=== PATIENT | male | born 1935 | race Hispanic/Latino ===

== ENCOUNTER 2019-09-11 23:34 | Inpatient (IN) | payer MEDICARE, OTHER ==
[~2019-09-11] VITALS: Ht 170.2 cm; Wt 61.7 kg
[2019-09-12] VITALS (12 sets, daily range): BP systolic 104–117; BP diastolic 54–72
[2019-09-12] MEDS ORDERED: SODIUM CHLORIDE 0.9% 1000ML 1,000 ML IV ONE ×2 (00:15)
[2019-09-12] MEDS ORDERED: CEFTRIAXONE SOD 1 GM/NS 50 ML 50 ML IV ONE (00:15)
--- NOTE | 2019-09-12 00:26 | Emergency Department Note ---
History of Present Illnes History of Present Illness Chief Complaint: Genitourinary History of Present Illness This is a 84 year old male FOR ONE WEEK HAS BEEN HAVING FOUL URINE ODOR COMING FROM BRIEF, FAMILY HAD A VIRTUAL CONSULT WITH DR WELCH IN WHICH THEY DID A URINE SAMPLE WITH [facility], DR SIMENTAL OFFICE CALLED TODAY AND PLACED PATIENT ON BACTRIM-POSITIVE FOR E.COLI IN URINE, FAMILY COMES IN TODAY FOR CONCERNS THAT PATIENT HAS BEEN HAVING NEW BLADDER DISTENTION SINCE 3PM TODAY. PATIENT HAS NOT URINATED SINCE 3PM TODAY PER FAMILY . Historian: Family Member Arrival Mode: Car Onset (how long ago): day(s) (7) Location: SUPRAPUBIC Quality: FOUL SMELLING URINE AND NOW NO URINE OUTPUT FOR PAST 9 HOURS Severity: moderate Onset quality: gradual Duration (how long): day(s) (7) Progression: worsening Chronicity: new Context: Reports recent illness (UTI) Relieving factors: none Exacerbating factors: none Associated symptoms: Reports confusion, Reports malaise, Reports weakness Treatments prior to arrival: none Past Medical/Family History Physician Review I have reviewed the patient's past medical and family history. Any updates have been documented here. Past Medical History Recent Fever: Yes Clinical Suspicion of Infectio: Yes New/Unexplained Change in Ment: Yes Other Medical History: PROSTATE UTI PARKINSONS Other Surgery: CATARACT REMOVAL Social History Smoking Cessation: Never Smoker Alcohol Use: None Physically hurt or threatened: No Family History Family history of heart diseas: No Review of Systems Review of Systems Constitutional: Reports as per HPI EENTM: Reports no symptoms Cardiovascular: Reports no symptoms Respiratory: Reports no symptoms Gastrointestinal: Reports no symptoms Genitourinary: Reports as per HPI Musculoskeletal: Reports no symptoms Integumentary: Reports no symptoms Neurological: Reports as per HPI Psychological: Reports no symptoms Endocrine: Reports no symptoms Hematological/Lymphatic: Reports no symptoms Physical Exam Related Data Allergies: Uncoded Allergies: PENICILLIN (Allergy, Intermediate, RASH, 09/11/19) Triage Vital Signs Vital Signs Date Time Temp Pulse Resp B/P (MAP) Pulse Ox O2 Delivery O2 Flow Rate FiO2 09/11/19 23:47 98.5 117 20 88/51 97 Room Air Vital signs reviewed: Yes Physical Exam CONSTITUTIONAL Constitutional: Present well-developed, Present well-nourished, Present ill appearing HENT HENT: Present normocephalic, Present atraumatic, Present mucosae dry, Present nose normal HENT L/R: Present left ext ear normal, Present right ext ear normal EYES Eyes: Reports PERRL, Reports conjunctivae normal NECK Neck: Present ROM normal PULMONARY Pulmonary: Present effort normal, Present other (DECREASED BREATH SOUNDS BASE BILATERAL) CARDIOVASCULAR Cardiovascular: Present regular rhythm, Present heart sounds normal, Present capillary refill normal, Present tachycardia (117) GASTROINTESTINAL Abdominal: Present soft, Present bowel sounds normal, Present tender (SUPRAPUBIC, BLADDER FEELS DISTENDED ON EXAM) GENITOURINARY Genitourinary: Present exam deferred SKIN Skin: Present warm, Present dry MUSCULOSKELETAL Musculoskeletal: Present ROM normal NEUROLOGICAL Neurological: Present alert, Present no gross motor or sensory deficits, Present weakness (GENERALIZED), Present other (ORIENTED TO PERSON ONLY AT THIS TIME) PSYCHOLOGICAL Psychological: Present mood/affect normal Results Laboratory Laboratory Laboratory Tests Test 09/12/19 02:13 09/12/19 00:35 09/12/19 00:15 Lactic Acid Level 2.8 mmol/L (0.5-2.0) 3.7 mmol/L (0.5-2.0) Urine Color Other (YELLOW) Urine Clarity Turbid (CLEAR) Urine pH 5.5 (5 - 7) Urine Specific [place] 1.015 (1.010-1.025) Urine Protein 2+ (NEGATIVE) Urine Glucose (UA) Negative (NEGATIVE) Urine Ketones Negative (NEGATIVE) Urine Blood Moderate (NEGATIVE) Urine Nitrite Positive (NEGATIVE) Urine Bilirubin Negative (NEGATIVE) Urine Urobilinogen 0.2 mg/dL (0.2 - 1) Urine Leukocyte Esterase Large (NEGATIVE) Urine RBC 6-10 /HPF (0-5) Urine WBC >50 /HPF (0-5) Urine Epithelial Cells Rare /LPF (NONE) Urine Bacteria Many /HPF (NONE) White Blood Count 35.88 x10e3/uL (4.8-10.8) Red Blood Count 4.66 x10e6/uL (4.3-5.7) Hemoglobin 13.2 g/dL (14.0-18.0) Hematocrit 38.9 % (38.2-49.6) Mean Corpuscular Volume 83.5 fL (81-99) Mean Corpuscular Hemoglobin 28.3 pg (28-32) Mean Corpuscular Hemoglobin Concent 33.9 g/dL (31-35) Red Cell Distribution Width 14.6 % (11.7-14.4) Platelet Count 187 x10e3/uL (140-360) Neutrophils (%) (Auto) 93.2 % (38.7-80.0) Lymphocytes (%) (Auto) 1.7 % (18.0-39.1) Monocytes (%) (Auto) 0.6 % (4.4-11.3) Eosinophils (%) (Auto) 0.1 % (0.0-6.0) Basophils (%) (Auto) 0.5 % (0.0-1.0) Neutrophils # (Auto) 33.4 (2.1-6.9) Lymphocytes # (Auto) 0.6 (1.0-3.2) Monocytes # (Auto) 0.2 (0.2-0.8) Eosinophils # (Auto) 0.0 (0.0-0.4) Basophils # (Auto) 0.2 (0.0-0.1) Absolute Immature Granulocyte (auto 1.41 x10e3/uL (0-0.1) Differential Total Cells Counted 100 Neutrophils % (Manual) 93 % (40-74) Band Neutrophils % 3 % Lymphocytes % (Manual) 3 % (19-48) Monocytes % (Manual) 1 % (3.4-9.0) Platelet Estimate Adequate Platelet Morphology Comment Normal Anisocytosis Slight Red Cell Morphology Comment Normal Prothrombin Time 14.8 seconds (11.9-14.5) Prothromb Time International Ratio 1.10 Activated Partial Thromboplast Time 33.4 seconds (23.8-35.5) Sodium Level 132 mmol/L (136-145) Potassium Level 4.1 mmol/L (3.5-5.1) Chloride Level 102 mmol/L (98-107) Carbon Dioxide Level 18 mmol/L (22-29) Anion Gap 16.1 mmol/L (8-16) Blood Urea Nitrogen 37 mg/dL (7-26) Creatinine 2.39 mg/dL (0.72-1.25) Estimat Glomerular Filtration Rate 26 ML/MIN (60-) BUN/Creatinine Ratio 15 (6-25) Glucose Level 127 mg/dL (74-118) Calcium Level 8.8 mg/dL (8.4-10.2) Total Bilirubin 0.2 mg/dL (0.2-1.2) Aspartate Amino Transf (AST/SGOT) 58 IU/L (5-34) Alanine Aminotransferase (ALT/SGPT) 43 IU/L (0-55) Alkaline Phosphatase 166 IU/L (40-150) Creatine Kinase 159 IU/L (30-200) Creatine Kinase MB 2.20 ng/mL (0-5.0) Troponin I 0.293 ng/mL (0-0.300) Total Protein 6.2 g/dL (6.5-8.1) Albumin 2.3 g/dL (3.5-5.0) Globulin 3.9 g/dL (2.3-3.5) Albumin/Globulin Ratio 0.6 (0.8-2.0) Lab results reviewed: Yes Imaging Imaging results reviewed: Yes Impressions Procedure: [id number] DX/CHEST SINGLE (PORTABLE) Exam Date: 09/12/19 Exam Time: 001 REPORT STATUS: Signed EXAMINATION: CHEST SINGLE (PORTABLE) INDICATION: WEAKNESS COMPARISON: None FINDINGS: TUBES and LINES: None. LUNGS: Lungs are well inflated. Patchy bibasilar opacities. No evidence of lobar consolidation or pulmonary edema. Mild biapical pleural-parenchymal scarring. Small bilateral upper lung likely calcified granulomas. Linear opacity in the right upper lung may represent atelectasis or scarring. PLEURA: Trace bilateral pleural effusions. No pneumothorax. HEART AND MEDIASTINUM: The cardiomediastinal silhouette is unremarkable. BONES AND SOFT TISSUES: No acute osseous lesion. Soft tissues are unremarkable. UPPER ABDOMEN: No free air under the diaphragm. IMPRESSION: Trace bilateral pleural effusions with bibasilar opacities, which may represent atelectasis or infection in the appropriate clinical setting. Suggest follow-up chest radiograph in 6-8 weeks to assess for resolution. Signed by: Dr. Ivy Clayton MD on 09/12/2019 12:35 AM Dictated By: IVY CLAYTON MD Transcribed By: OMA on 09/12/1934 COPY TO: FALGUNI DIOP MD~ Critical Care Time Total Critical Care Time (min): 31 Critcal care necessary due to: circulatory failure Critcal care time spent by me: develop tx plan w patient/surrogate, discussion w consultants, interpret cardiac output measures, evaluation patient response to tx, examination of patient, obtaining hx from patient/surrogate, order/perform tx or interventions, order/review laboratory studies, order/review radiographic studies, pulse oximetry, re-evaluation of patient condition Assessment & Plan Medical Decision Making MDM PT WITH 7 DAYS OF CONFUSION AND DIAGNOSED WITH UTI NOW WITH NO URINE OUTPUT IN LAST 9 HOURS, NOTED TO BE TACHYCARDIC AND HYPOTENSIVE ON ARRIVAL CBC, CMP, LACTIC ACID, BLOOD CULTURES, ROSAS CATHETER,CXR, UA, URINE CULTURE, EKG, CARDIAC ENZYMES ORDERED TO EVAL FOR UTI, LEUKOCYTOSIS, URINARY RETENTION, ELECTROLYTE ABNORMALITY, PNEUMONIA SEPSIS PROTOCOL INITIATED ROCEPHIN 1 GRAM IV ORDERED 30CC/KG NS IV BOLUS ORDERED, PT WEIGHT 61.8 KG, FLUID BOLUS COMES TO 1854CC NS, A TOTAL OF 2 LITERS NS IV BOLUS ORDERED TO ACCOUNT FOR THIS ROSAS CATH PLACED AND RETURNED 1000 CC OF CLOUDY URINE. INITIAL LACTIC ACID 3.[address] FIERRO AND DR MAYA, ADMIT TO IMCU Reassessment Reassessment time: 01:02 Reassessment I DID A BEDSIDE FLUID RESUSCITATION EXAM, VITAL, HEART 106, BP 199/68, RR 23, OXYGEN SATURATION 99% ON ROOM AIR Assessment & Plan Final Impression: (1) UTI (urinary tract infection) (2) Septic shock (3) Urinary retention (4) Leukocytosis Depart Disposition: ADMITTED Last Vital Signs Date Time Temp Pulse Resp B/P (MAP) Pulse Ox O2 Delivery O2 Flow Rate FiO2 09/11/19 23:47 98.5 117 20 88/51 97 Room Air Medications in the ED Ceftriaxone Sodium 50 ml @ 100 mls/hr ONCE ONCE IV ; Start 09/12/19 at 00:15; Stop 09/12/19 at 00:44 Sodium Chloride 1,000 ml @ 999 mls/hr Q1H1M ONCE IV ; Start 09/12/19 at 00:15; Stop 09/12/19 at 01:15 Sodium Chloride 1,000 ml @ 999 mls/hr Q1H1M ONCE IV ; Start 09/12/19 at 00:15; Stop 09/12/19 at 01:15 FALGUNI DIOP MD Sep 12, 2019 00:26
--- NOTE | 2019-09-12 00:30 | NUR ---
1000CC OF URINE UPON INSERTION OF ROSAS CATH. PATIENTS SUPRAPUBIC REGION IS DECREASED IN SIZE. PATIENTS ABDOMEN IS BECOMING SOFTER. DR DIOP INFORMED.
--- NOTE | 2019-09-12 00:39 | Diagnostic Imaging Report ---
EXAMINATION: CHEST SINGLE (PORTABLE) INDICATION: WEAKNESS COMPARISON: None FINDINGS: TUBES and LINES: None. LUNGS: Lungs are well inflated. Patchy bibasilar opacities. No evidence of lobar consolidation or pulmonary edema. Mild biapical pleural-parenchymal scarring. Small bilateral upper lung likely calcified granulomas. Linear opacity in the right upper lung may represent atelectasis or scarring. PLEURA: Trace bilateral pleural effusions. No pneumothorax. HEART AND MEDIASTINUM: The cardiomediastinal silhouette is unremarkable. BONES AND SOFT TISSUES: No acute osseous lesion. Soft tissues are unremarkable. UPPER ABDOMEN: No free air under the diaphragm. IMPRESSION: Trace bilateral pleural effusions with bibasilar opacities, which may represent atelectasis or infection in the appropriate clinical setting. Suggest follow-up chest radiograph in 6-8 weeks to assess for resolution. Signed by: Dr. Ivy Romero MD on 09/12/2019 12:35 AM
[2019-09-12 00:49] LABS: BASOPHILS # (AUTO) 0.2 (0.0-0.1); BASOPHILS % 0.5 % (0.0-1.0); EOSINOPHILS % 0.1 % (0.0-6.0); HEMATOCRIT 38.9 % (38.2-49.6); HEMOGLOBIN 13.2 g/dL (14.0-18.0); LYMPHOCYTES # (AUTO) 0.6 (1.0-3.2); LYMPHOCYTES % 1.7 % (18.0-39.1); MEAN CORPUSCULAR HEMOGLOBIN 28.3 pg (28-32); MEAN CORPUSCULAR HGB CONC 33.9 g/dL (31-35); MEAN CORPUSCULAR VOLUME 83.5 fL (81-99); MONOCYTES # (AUTO) 0.2 (0.2-0.8); MONOCYTES % 0.6 % (4.4-11.3); NEUTROPHILS # (AUTO) 33.4 (2.1-6.9); NEUTROPHILS % 93.2 % (38.7-80.0); PLATELET COUNT 187 x10e3/uL (140-360); RED BLOOD COUNT 4.66 x10e6/uL (4.3-5.7); RED CELL DISTRIBUTION WIDTH 14.6 % (11.7-14.4)
[2019-09-12 00:58] LABS: PARTIAL THROMBOPLASTIN TIME 33.4 seconds (23.8-35.5)
[2019-09-12 01:00] LABS: CLARITY,URINE TURBID (CLEAR); COLOR,URINE OTHER (YELLOW)
[2019-09-12 01:01] LABS: BILIRUBIN,URINE NEGATIVE (NEGATIVE); KETONES,URINE NEGATIVE (NEGATIVE); LEUKOCYTE ESTERASE ,URINE LARGE (NEGATIVE); NITRITE,URINE POSITIVE (NEGATIVE); PROTEIN,URINE DIPSTICK 2+ (NEGATIVE); URINE UROBILINOGEN 0.2 mg/dL (0.2 - 1)
[2019-09-12 01:03] LABS: BACTERIA,URINE MANY /HPF; EPITHELIAL CELLS,URINE RARE /LPF; WBC,URINE (MAN) >50 /HPF (0-5)
[2019-09-12 01:04] LABS: INR 1.1; PROTHROMBIN TIME 14.8 seconds (11.9-14.5)
[2019-09-12 01:05] LABS: ALBUMIN 2.3 g/dL (3.5-5.0); ALBUMIN/GLOBULIN RATIO 0.6 (0.8-2.0); ANION GAP 16.1 mmol/L (8-16); CALCIUM 8.8 mg/dL (8.4-10.2); CREATININE, SERUM 2.39 mg/dL (0.72-1.25); POTASSIUM 4.1 mmol/L (3.5-5.1)
[2019-09-12 01:15] LABS: BAND NEUTROPHILS % (MANUAL) 3 %; LYMPHOCYTES % (MANUAL) 3 % (19-48); MONOCYTES % (MANUAL) 1 % (3.4-9.0); NEUTROPHILS % (MANUAL) 93 % (40-74)
[2019-09-12 01:16] LABS: ANISOCYTOSIS SLIGHT; PLATELET ESTIMATE ADEQUATE; PLATELET MORPHOLOGY COMMENT NORMAL; RBC MORPHOLOGY COMMENT NORMAL
[2019-09-12 01:27] LABS: CREATINE KINASE MB 2.2 ng/mL (0-5.0)
[2019-09-12] MEDS: SODIUM CHLORIDE 0.9% 1000ML 1,000 ML IV SCH ×4 (02:41→12:32)
[2019-09-12] MEDS ORDERED: CEFTRIAXONE SOD 1 GM/NS 50 ML 50 ML IV SCH (04:30)
[2019-09-12] MEDS ORDERED: ONDANSETRON HCL INJ 2MG/ML 2ML 2 MG/ML VIAL IV PRN (04:30)
[2019-09-12 05:39] LABS: EOSINOPHILS % 0.1 % (0.0-6.0); HEMATOCRIT 33.7 % (38.2-49.6); HEMOGLOBIN 11.9 g/dL (14.0-18.0); LYMPHOCYTES # (AUTO) 1.3 (1.0-3.2); LYMPHOCYTES % 2.5 % (18.0-39.1); MEAN CORPUSCULAR HEMOGLOBIN 30.7 pg (28-32); MEAN CORPUSCULAR HGB CONC 35.3 g/dL (31-35); MEAN CORPUSCULAR VOLUME 86.9 fL (81-99); MONOCYTES # (AUTO) 2.1 (0.2-0.8); NEUTROPHILS # (AUTO) 43.8 (2.1-6.9); NEUTROPHILS % 86.4 % (38.7-80.0); PLATELET COUNT 163 x10e3/uL (140-360); RED BLOOD COUNT 3.88 x10e6/uL (4.3-5.7); RED CELL DISTRIBUTION WIDTH 14.8 % (11.7-14.4)
[2019-09-12 06:23] LABS: ALBUMIN/GLOBULIN RATIO 0.6 (0.8-2.0); ANION GAP 12.6 mmol/L (8-16); CALCIUM 7.9 mg/dL (8.4-10.2); CREATININE, SERUM 1.83 mg/dL (0.72-1.25); POTASSIUM 3.6 mmol/L (3.5-5.1)
--- NOTE | 2019-09-12 06:27 | NUR ---
DR DIOP AWARE OF CBC COUNT
--- NOTE | 2019-09-12 07:04 | NUR ---
REPORT GIVEN TO TRUNG BARRIENTOS
[2019-09-12] MEDS ORDERED: TOPIRAMATE50 MG PO (07:30)
[2019-09-12] MEDS ORDERED: FUROSEMIDE20 MG PO (07:30)
[2019-09-12] MEDS ORDERED: SMZ/TMP PO (07:30)
[2019-09-12] MEDS ORDERED: MYSOLINE250 MG PO (07:30)
[2019-09-12] MEDS ORDERED: FINASTERIDE5 MG PO (07:30)
[2019-09-12] MEDS ORDERED: CARBIDOPA-LEVO1 EAC1 PO (07:30)
--- NOTE | 2019-09-12 07:47 | NUR ---
PT TO THE FLOOR AT THIS TIME. FAMILY MEMBER AT BEDSIDE. PT BERMUDIAN SPEAKING. FAMILY MEMBER TRANSLATING. PT'S VITALS WNL.
[2019-09-12 08:48] LABS: LYMPHOCYTES % (MANUAL) 4 % (19-48); MONOCYTES % (MANUAL) 1 % (3.4-9.0); NEUTROPHILS % (MANUAL) 89 % (40-74)
[2019-09-12 08:49] LABS: ANISOCYTOSIS SLIGHT; BAND NEUTROPHILS % (MANUAL) 6 %; PLATELET ESTIMATE ADEQUATE; PLATELET MORPHOLOGY COMMENT NORMAL; RBC MORPHOLOGY COMMENT NORMAL
--- NOTE | 2019-09-12 09:50 | NUR ---
Whitmore cath, patent , bag of the floor , care done .
[2019-09-12] MEDS ORDERED: SODIUM CHLORIDE 0.9% 1000ML 1,000 ML IV SCH ×2 (11:45→13:45)
[2019-09-12] MEDS ORDERED: ACETAMINOPHEN 325 MG TAB PO PRN (11:45)
[2019-09-12] MEDS ORDERED: MEROPENEM 500MG/ NS 50ML 50 ML IV SCH (12:00)
[2019-09-12] MEDS ORDERED: DOCUSATE SODIUM 100 MG CAP PO PRN (12:00)
--- NOTE | 2019-09-12 12:35 | NUR ---
consult called to dr López and dr Arias @ [id number] am
[2019-09-12] MEDS ORDERED: VANCOMYCIN 1GM/NS 250 ML 250 ML IV SCH (13:00)
[2019-09-12] MEDS ORDERED: SODIUM CHLORIDE 0.9% 50ML 50 ML ONE (13:38)
[2019-09-12] MEDS ORDERED: IOPAMIDOL 370 MG/ML 200 ML INFUS..BTL INJ ONE (13:38)
--- NOTE | 2019-09-12 14:09 | NUR ---
DR. FIERRO STATED THAT HE WANTS THE PICC LINE PLACEMENT FOR PT SAFETY AND TREATMENT AND ACKNOWLEDGES THE P LABS NOT IN THE BEST PARAMETERS.
--- NOTE | 2019-09-12 14:32 | Diagnostic Imaging Report ---
EXAM: CT Chest, Abdomen and Pelvis WITH contrast INDICATION: ^WBC 50, FEVER ^[id number] ^[id number] COMPARISON: Chest radiograph 09/12/2019 TECHNIQUE: Chest, abdomen and pelvis were scanned utilizing a multidetector helical scanner from the lung apex to the pubic symphysis after administration of IV contrast. Coronal and sagittal reformations were obtained. Routine protocol was performed. Scan was performed when during portal venous phase. IV CONTRAST: 150 mL of Omnipaque 300 ORAL CONTRAST: Water COMPLICATIONS: None RADIATION DOSE: Total DLP: 808 mGy*cm Estimated effective dose: (DLP x 0.015 x size factor) mSv CTDIvol has been reviewed. It is below the limits set by the Radiation Protocol Committee (RPC). Dose modulation, iterative reconstruction, and/or weight based adjustment of the mA/kV was utilized to reduce the radiation dose to as low as reasonably achievable. FINDINGS: LINES and TUBES: None. LUNGS AND AIRWAYS: Upper lobe and lower lobe dependent interstitial opacities, likely atelectasis. Bibasilar passive atelectasis. No pulmonary mass. The airways are clear. PLEURA: Small bilateral pleural effusions. The left pleural effusion is minimally loculated. HEART AND MEDIASTINUM: Nonspecific hypodense nodule of the right thyroid lobe. The heart is at the upper limit of normal in size. No pericardial effusion. No thoracic adenopathy by CT size criteria. Advanced coronary artery calcifications. Small hiatal hernia. HEPATOBILIARY: Tiny right hepatic lobe hypodensity, likely a cyst. Ill-defined indeterminate 8 mm hypodensity of the left hepatic lobe (image 53), suboptimally evaluated on this examination. No biliary ductal dilation. GALLBLADDER: No radio-opaque stones or sludge. No wall thickening. SPLEEN: No splenomegaly. PANCREAS: No focal masses or ductal dilatation. ADRENALS: No adrenal nodules. KIDNEYS/URETERS: Kidneys enhance symmetrically. No hydronephrosis. Mild prominence of the ureters. 2.9 cm exophytic left renal upper pole cyst. No stones. GI TRACT: The rectum is distended by a large volume of stool. There is minimal rectal wall thickening and mild perirectal and presacral fat stranding. No small bowel wall thickening. No specific evidence of bowel obstruction. Normal appendix. PELVIC ORGANS/BLADDER: Marked thickening of the urinary bladder wall with mucosal enhancement. Bladder catheter is in place. Small amount of bladder air. Mild prostatomegaly. LYMPH NODES: No gross adenopathy. VESSELS: Catheter atherosclerotic arterial calcifications. PERITONEUM / RETROPERITONEUM: No free air or fluid. BONES: Multilevel degenerative change. No acute abnormality. SOFT TISSUES: Unremarkable. IMPRESSION: 1. Marked urinary bladder wall thickening with mucosal enhancement consistent with cystitis. 2. Distention of the rectum by stool with suggestion of mild perirectal inflammation. This may reflect mild stercoral proctitis. 3. Small bilateral pleural effusions. The left pleural effusion is minimally loculated. Signed by: Eugenio Fitch MD on 09/12/2019 2:29 PM
[2019-09-12] MEDS: CARBIDOPA/LEVODOPA 25/100 TAB PO SCH ×2 (15:25→21:00)
--- NOTE | 2019-09-12 16:17 | NUR ---
consult [id number]
--- NOTE | 2019-09-12 16:36 | Consultation ---
DATE OF CONSULTATION: REASON FOR CONSULTATION: Sepsis, pyelonephritis, and UTI. HISTORY OF PRESENT ILLNESS: This patient who is 84-year-old [place] male, who has history of Parkinson disease and history of benign prostatic hypertrophy. For the last few days, he has been getting progressively worse, less responsive, fever and chills, brought to the emergency room. In the emergency room, his white count was 50,000, hemoglobin 11.9, and a Whitmore catheter was inserted and according to the daughter there was pus type of material came, now the urine still looked turbulent. The patient is alert, but weak. Has no specific complaint. He seems more alert according to the family. PAST MEDICAL HISTORY: Parkinson disease and benign prostatic hypertrophy. PAST SURGICAL HISTORY: Denies. ALLERGIES: PENICILLIN. SOCIAL HISTORY: There is no smoking, drug abuse, or alcohol abuse. FAMILY HISTORY: Unremarkable. LABORATORY DATA: Sodium 140, potassium 3.6. COVID-19 was negative. Creatinine was 1.83. Lactic acid when he first came was 2.4. His white count is 50, hemoglobin 11, hematocrit 33. His white count came down to 35. PHYSICAL EXAMINATION: GENERAL: He is currently alert, oriented. VITAL SIGNS: Stable, afebrile currently. HEENT: He is not icteric. NECK: Supple. CHEST: Clear. HEART: S1, S2. No murmur. ABDOMEN: Soft. IMPRESSION: 1. Sepsis and septic shock, present on admission. The source is pyelonephritis. We will put him on meropenem. 2. Chronic kidney disease. We will adjust antibiotic because of that. 3. Continue supportive care. Await blood cultures. Await urine cultures. We will follow. MD ANN Martínez/[place] /[id number]
[2019-09-12] MEDS ORDERED: TOPIRAMATE PO SCH (17:00)
[2019-09-12] MEDS: PRIMIDONE 250 MG TABLET PO SCH (17:00)
[2019-09-12] MEDS: TOPIRAMATE 25 MG TAB PO SCH (17:14)
[2019-09-12] MEDS: ENOXAPARIN SOD INJ 40 MG/0.4 ML SYR SC SCH (17:14)
--- NOTE | 2019-09-12 17:28 | NUR ---
Primidone not given BP 121/75 map 86, pt on NS 100 ml/h
[2019-09-12 18:10] LABS: EOSINOPHILS % 0.1 % (0.0-6.0); HEMATOCRIT 33.9 % (38.2-49.6); HEMOGLOBIN 11.6 g/dL (14.0-18.0); LYMPHOCYTES # (AUTO) 1.1 (1.0-3.2); LYMPHOCYTES % 2.8 % (18.0-39.1); MEAN CORPUSCULAR HEMOGLOBIN 28.2 pg (28-32); MEAN CORPUSCULAR HGB CONC 34.2 g/dL (31-35); MEAN CORPUSCULAR VOLUME 82.5 fL (81-99); MONOCYTES # (AUTO) 1.3 (0.2-0.8); MONOCYTES % 3.3 % (4.4-11.3); NEUTROPHILS # (AUTO) 35.4 (2.1-6.9); NEUTROPHILS % 90.3 % (38.7-80.0); PLATELET COUNT 160 x10e3/uL (140-360); RED BLOOD COUNT 4.11 x10e6/uL (4.3-5.7); RED CELL DISTRIBUTION WIDTH 14.6 % (11.7-14.4)
[2019-09-12 18:31] LABS: ANION GAP 9.7 mmol/L (8-16); CREATININE, SERUM 1.23 mg/dL (0.72-1.25); POTASSIUM 3.7 mmol/L (3.5-5.1)
--- NOTE | 2019-09-12 19:37 | History and Physical ---
CHIEF COMPLAINT: Decreased urine output, whitish urine output. HISTORY OF PRESENT ILLNESS: This is an 84-year-old male with history of Parkinson disease, BPH, who recently saw his PCP after he was reportedly having some fever, found to have a urinary tract infection, was told to come to the ER for further evaluation and management. According to the daughter at bedside, the patient has been having this issue for more than a week with some dysuria and white-colored urine, but the patient refused to go to the hospital until recently saw his PCP. He also had subjective fever. He does have a mild cough, no congestion. He lives with his family. There are no sick contacts at home. No one with COVID-19. The patient had a Whitmore inserted in the ER. The patient had significant whitish urine material noted and his white count was found to be elevated. The patient is being treated for underlying sepsis from a urinary tract infection. The patient is seen and evaluated at bedside on the medical floor, he is currently doing well considering his labs are abnormal, and his vital signs were stable. REVIEW OF SYSTEMS: Pertinent positive; dysuria, subjective fever, cough. The rest of 14-point review of systems have been reviewed with the patient and are negative. ALLERGIES: TO PENICILLINS. HOME MEDICATIONS: Furosemide, levodopa/carbidopa, finasteride, primidone, topiramate. PAST MEDICAL HISTORY: Has a history of Parkinson disease, BPH, essential tremors. PAST SURGICAL HISTORY: Reports none. FAMILY HISTORY: Hypertension, diabetes. SOCIAL HISTORY: No drugs, no alcohol, does not smoke. Good social support. Lives with family. PHYSICAL EXAMINATION: VITAL SIGNS: Temperature is 97.9, pulse 91, respirations 17, blood pressure 104/62, and pulse ox 97% on room air. GENERAL: Not in acute distress, alert and oriented x3. Cooperative on examination. HEENT: Normocephalic, atraumatic. Eyes; pupils are reactive to light bilaterally. Extraocular movements are intact bilaterally. Throat, no evidence of any erythema or exudates in the posterior pharynx. Has poor dentition. NECK: Supple. Good range of motion. PULMONARY: Clear to auscultation bilaterally. No wheezing, no rales, no rhonchi, no crackles appreciated. CARDIOVASCULAR: Positive S1, S2. No murmurs, rubs, or gallops appreciated. ABDOMEN: Soft, nondistended, and nontender to palpation. Bowel sounds present. MUSCULOSKELETAL: Strength is 5/5 throughout. No evidence of any muscle deficits on examination. SKIN: Intact, warm to touch. Good cap refill. PSYCHIATRIC: Normal affect and mood. EXTREMITIES: No edema. Good range of motion throughout. : The patient has a Whitmore catheter with pus material, whitish-liquidish material noted. LABORATORY FINDINGS: Show white count on admission was 35, now 50; hemoglobin 11.9, hematocrit 33.7, and platelets of 163. Coagulation; PT 14, INR 1.1, PTT 33. Chemistry; sodium 140, potassium 3.6, chloride 110, bicarb 21, anion gap of 12, BUN is 33, creatinine is 1.83. His glucose is 101. Lactic acid is 2.4, calcium is 7.9, total bilirubin 0.3, AST 46, ALT 40, alkaline phosphatase 135. His troponins were 0.293 within normal range. Albumin was 2. Urinalysis; shows wbc's greater than 50, 6 to 10 rbc's, many bacteria noted. SEROLOGY: Coronavirus is pending. MICROBIOLOGY: Blood and urine cultures are pending. IMAGING STUDIES: Chest x-ray shows trace bilateral pleural effusion with bibasilar like opacity, which may represent atelectasis or infection in appropriate clinical setting. The patient has a CT chest, abdomen, and pelvis with IV contrast ordered stat. IMPRESSION: 1. Sepsis with leukocytosis/concerns for urinary tract infection. 2. Urinary tract infection with whitish material. 3. Rule out COVID-19. 4. Lactic acidosis, likely secondary to #1. 5. History of Parkinson disease. PLAN: At this time, resume same home medications. I did go ahead and put for change of IV antibiotics to Merrem and vancomycin and stat doses ordered now. Blood cultures x2 has been ordered. I also ordered a stat CT chest, abdomen, pelvis with IV contrast, stat PICC line as well. Now white count of 50 is very concerning despite the patient looks very stable during my evaluation. He is afebrile. I am not sure there is a component of CLL. I do not have any of the record of this patient. At this time, we will go ahead and treat him as if he had an infection based on the clinical finding. He will be on Lovenox for DVT prophylaxis. Heart healthy diet. We will continue to monitor very closely. I discussed the plan of care with the patient's daughter, who was at bedside with nurse, Omero, present throughout the entire conversation and she verbalized understanding. Overall, prognosis is very guarded. Despite the patient looking good, his labs look significantly abnormal. MD SHEYLA Macario/[place] /[id number]
--- NOTE | 2019-09-12 20:57 | Consultation ---
DATE OF CONSULTATION: Pulmonary Critical Care consultation CHIEF COMPLAINT: Fevers and leukocytosis. HISTORY OF PRESENT ILLNESS: The patient is an 84-year-old man. He has a history of Parkinson disease and prostatic hypertrophy. He came to the emergency department for fevers, and decreasing responsiveness. He was found to have a white blood cell count of 50,000. He also had some pyuria upon placement of his Whitmore catheter. PAST MEDICAL HISTORY: 1. Parkinson disease. 2. Prostatic hypertrophy. PAST SURGICAL HISTORY: Noncontributory. ALLERGIES: PENICILLIN. SOCIAL HISTORY: The patient is not an active smoker or drinker. REVIEW OF SYSTEMS: The patient had some confusion. There was no headache. He had no chest pain or difficulty breathing. He had no abdominal pain. He has had some problems with urination. PHYSICAL EXAMINATION: VITAL SIGNS: Stable. The blood pressure is 109/68 and saturation is 97%. The pulse is 93. HEENT: No facial swelling or erythema. CARDIAC: Regular rate and rhythm with normal S1, S2. LUNGS: Auscultation of lungs reveals rhonchorous breath sounds bilaterally. There is no wheezing. ABDOMEN: Soft, nontender. There is no rebound or guarding. EXTREMITIES: No leg edema or calf tenderness. There are some increased tone suggestive of Parkinson disease. LABORATORY DATA: White blood cell count is 50.7 and hemoglobin is 11.9. The platelet count is 163. The BUN to creatinine ratio is 33 to 1.83 with a normal set of electrolytes. RADIOGRAPHIC DATA: Chest CT shows small bilateral pleural effusions. CT scan of the abdomen and pelvis shows some thickening of the urinary bladder consistent with cystitis as well as severe constipation. IMPRESSION: 1. Urinary tract infection with severe sepsis, present on admission. 2. Acute kidney injury. 3. Parkinson disease. 4. Benign prostatic hypertrophy. PLAN: 1. The patient has received IV fluids in accordance with the sepsis protocol. 2. Continue current antibiotics. 3. Await culture results. 4. Continue to monitor creatinine. Noman Arias MD [facility]/[place] /[id number]
[2019-09-13] VITALS (7 sets, daily range): BP systolic 124–141; BP diastolic 69–92
--- NOTE | 2019-09-13 00:17 | Diagnostic Imaging Report ---
EXAMINATION: CHEST XRAY LINE PLACEMENT INDICATION: post picc placement COMPARISON: Chest radiograph 09/12/2019. FINDINGS: TUBES and LINES: Interval placement of right arm PICC with catheter tip near the cavoatrial junction. LUNGS: Lungs are well inflated. Mild bilateral interstitial opacities. Basilar predominant patchy opacities, left greater than right. PLEURA: Trace bilateral pleural effusions. No pneumothorax HEART AND MEDIASTINUM: The cardiomediastinal silhouette is unremarkable. BONES AND SOFT TISSUES: No acute osseous lesion. Soft tissues are unremarkable. UPPER ABDOMEN: No free air under the diaphragm. IMPRESSION: Interval placement of right arm PICC with catheter tip near the cavoatrial junction. No pneumothorax. Mild pulmonary interstitial edema. Small bilateral pleural effusions with bibasilar opacities, likely atelectasis. Signed by: Dr. Ivy Romero MD on 09/13/2019 12:14 AM
--- NOTE | 2019-09-13 06:37 | NUR ---
Pt resting in bed easily aroused, daughter at bedside. no s/sx of distress noted. will report to oncoming staff
--- NOTE | 2019-09-13 07:00 | NUR ---
BEDSIDE SHIFT REPORT RECEIVED FROM MAGALIE PATTON. PT DENIES NEEDS AT THIS TIME.
[2019-09-13 07:54] LABS: BASOPHILS # (AUTO) 0.1 (0.0-0.1); BASOPHILS % 0.3 % (0.0-1.0); EOSINOPHILS % 0.1 % (0.0-6.0); HEMATOCRIT 33.9 % (38.2-49.6); HEMOGLOBIN 11.5 g/dL (14.0-18.0); LYMPHOCYTES # (AUTO) 1.3 (1.0-3.2); MEAN CORPUSCULAR HEMOGLOBIN 28.2 pg (28-32); MEAN CORPUSCULAR HGB CONC 33.9 g/dL (31-35); MEAN CORPUSCULAR VOLUME 83.1 fL (81-99); MONOCYTES # (AUTO) 1.1 (0.2-0.8); MONOCYTES % 3.5 % (4.4-11.3); NEUTROPHILS # (AUTO) 28.6 (2.1-6.9); NEUTROPHILS % 89.4 % (38.7-80.0); PLATELET COUNT 160 x10e3/uL (140-360); RED BLOOD COUNT 4.08 x10e6/uL (4.3-5.7); RED CELL DISTRIBUTION WIDTH 14.7 % (11.7-14.4)
[2019-09-13 08:12] LABS: ALANINE AMINOTRANSFERASE 25 IU/L (0-55); ALBUMIN 1.9 g/dL (3.5-5.0); ALBUMIN/GLOBULIN RATIO 0.6 (0.8-2.0); ALKALINE PHOSPHATASE 106 IU/L (40-150); ANION GAP 8.9 mmol/L (8-16); BLOOD UREA NITROGEN 25 mg/dL (7-26); BUN/CREATININE RATIO 28 (6-25); CALCIUM 8.1 mg/dL (8.4-10.2); CARBON DIOXIDE 21 mmol/L (22-29); CHLORIDE 119 mmol/L (98-107); CREATININE, SERUM 0.89 mg/dL (0.72-1.25); EST GLOMERULAR FILTRATION RATE > 60 ML/MIN (60-); GLUCOSE 98 mg/dL (74-118); POTASSIUM 3.9 mmol/L (3.5-5.1); SODIUM 145 mmol/L (136-145)
[2019-09-13] MEDS: CARBIDOPA/LEVODOPA 25/100 TAB PO SCH ×3 (08:24→20:37)
[2019-09-13] MEDS: TOPIRAMATE 25 MG TAB PO SCH ×2 (08:25→16:49)
[2019-09-13] MEDS ORDERED: FINASTERIDE 5 MG TAB PO SCH (09:00)
[2019-09-13] MEDS: PRIMIDONE 250 MG TABLET PO SCH ×2 (09:33→16:49)
[2019-09-13] MEDS: SODIUM CHLORIDE 0.9% 1000ML 1,000 ML IV SCH ×2 (10:21→16:50)
[2019-09-13 11:15] LABS: ANISOCYTOSIS SLIGHT; LYMPHOCYTES % (MANUAL) 2 % (19-48); MONOCYTES % (MANUAL) 3 % (3.4-9.0); NEUTROPHILS % (MANUAL) 95 % (40-74); OVALOCYTES FEW; PLATELET ESTIMATE ADEQUATE; PLATELET MORPHOLOGY COMMENT NORMAL; RBC MORPHOLOGY COMMENT NORMAL
[2019-09-13] MEDS: MEROPENEM 500MG/ NS 50ML 50 ML IV SCH ×2 (11:51)
--- NOTE | 2019-09-13 14:14 | NUR ---
Infectious disease progress note Domenic in the Patient seen and examined chart reviewed and discussed with medical team. All laboratory reviewed medications. Preop [id number] and patient seen to more alert but subacute afebrile HEENT is not supple chest few crackles bilateral heart S1-S2 abdomen soft possible symptoms extremities no edema skin respiration s Lab data clean impression sepsis present on admission gram-negative sepsis. UTI. Still elevated white count with getting getting better. 5 continue supportive care continue antibiotic that order discussed medical team will check CBC and check chemistry panel chronic kidney disease Parkinson and dementia
--- NOTE | 2019-09-13 15:28 | Progress Note ---
DATE: 09/13/2019 Medicine Progress Note SUBJECTIVE: The patient is doing a whole lot better today. His white count is down trending, still elevated though. He is eating his breakfast with no issues. He was awake, alert, and his daughter was at bedside. PHYSICAL EXAMINATION: VITAL SIGNS: Temperature is 97.5, pulse 91, respiratory rate 22, blood pressure 132/75, and pulse ox 98% on room air. GENERAL: Not in acute distress. Alert and oriented x3. He is cooperative on examination. HEENT: Head is normocephalic, atraumatic. Eyes; pupils are reactive to light bilaterally. Extraocular muscles are intact bilaterally. Throat, no evidence of erythema or exudates in the posterior pharynx. Has poor dentition. NECK: Supple. Good range of motion. PULMONARY: Clear to auscultation bilaterally. No wheezing, rales, or rhonchi. No crackles appreciated. CARDIOVASCULAR: Positive S1 and S2. No murmurs, rubs, or gallops appreciated. ABDOMEN: Soft, nondistended, and nontender to palpation. Bowel sounds are present. MUSCULOSKELETAL: Strength is 5/5 throughout. No evidence of any muscle deficits on examination. No weakness appreciated. NEUROLOGIC: Cranial nerves II through XII are grossly intact. No evidence of any neurological deficits on exam. SKIN: Intact. Warm to touch. Good capillary refill. PSYCHIATRIC: Normal affect and mood. EXTREMITIES: No edema. Good range of motion throughout. LABORATORY FINDINGS: Show white count is 32, much improved compared to 50 yesterday; hemoglobin 11.5, hematocrit 34, and platelets of 160. Chemistry; sodium 145, potassium 3.9, chloride 111, bicarb 21, anion gap is 8.9, BUN is 25, creatinine is 0.89, calcium is 8.1, AST 36. His total protein is 5, albumin is 1.9. MICROBIOLOGY: Urine culture shows gram-negative bacilli pending final identification. Blood cultures, no growth to date. IMAGING STUDIES: None. IMPRESSION: 1. Sepsis with leukocytosis, secondary to urinary tract infection, much improved white count. 2. Urinary tract infection. 3. COVID-19 pneumonia ruled out. 4. Lactic acidosis, secondary to #1, improved. 5. History of Parkinson disease. 6. Small pleural effusion noted, concerns for loculation in the left. PLAN: At this time, his white count improved compared to yesterday. We will continue with broad-spectrum IV antibiotics. Urine cultures, gram-negative bacillus. Blood cultures, no growth today. The sandoval CT that are ordered showed some left-sided small loculation in which I consulted Pulmonary for. Critical Care was consulted for concerns of hypotension. He is otherwise, doing well. Continue with broad-spectrum IV antibiotic therapy. He has improved tremendously. Continue with Lovenox for DVT prophylaxis. He gets repeat labs tomorrow. He looks well. He is eating despite his white count still elevated. MD SHEYLA Macario/MODL /[id number]
[2019-09-13] MEDS: ENOXAPARIN SOD INJ 40 MG/0.4 ML SYR SC SCH (16:49)
--- NOTE | 2019-09-13 19:16 | NUR ---
PT. AWAKE, ALERT, RESPIRATIONS ARE EVEN AND UNLABORED. DAUGHTER AT HIS BEDSIDE.
--- NOTE | 2019-09-13 21:34 | Progress Note ---
DATE: SUBJECTIVE: The patient is feeling better, but he still has weakness. He has not been able to stand independently. He has pyuria. PHYSICAL EXAMINATION: VITAL SIGNS: The blood pressure is 140/80, saturation is 95% on room air, and the respiratory rate is 20. Pulse is 99. HEENT: Shows no facial swelling or erythema. CARDIAC: Reveals regular rate and rhythm with normal S1 and S2. LUNGS: Auscultation of lungs reveals decreased breath sounds at the bases. There is no wheezing. ABDOMEN: Soft and nontender. There is no rebound or guarding. EXTREMITIES: Shows no leg edema or calf tenderness. There is no cyanosis or clubbing. SKIN: Shows no rashes. NEUROLOGICAL: Shows no focal abnormalities. LABORATORY DATA: White blood cell count is improved to 32 and the hemoglobin is 11.5. The platelet count is 160. BUN to creatinine ratio is normal. The carbon dioxide is 21 and the albumin is 1.9. MICROBIOLOGICAL DATA: The patient has Gram-negative rods in the urine greater than 100,000. RADIOGRAPHIC DATA: Chest x-ray shows some mild interstitial edema and small pleural effusions. IMPRESSION: 1. Urinary tract infection with severe sepsis, present on admission. 2. Acute kidney injury. 3. Parkinson disease. 4. Benign prostatic hypertrophy. PLAN: 1. Continue current antibiotics. 2. Continue to monitor white blood cell count. 3. Continue anti-Parkinson's regimen. 4. Echocardiogram. 5. Physical therapy. MD CLARE Araya/ENMANUELL /[id number]
[2019-09-14] MEDS: MEROPENEM 500MG/ NS 50ML 50 ML IV SCH
--- NOTE | 2019-09-14 | NUR ---
patient diaphoretic and unresponsive. bp 132/78 hr 81 rr 22 02 sats 95% at this time. blood glucose 113.
--- NOTE | 2019-09-14 00:04 | NUR ---
rapid response called.
[2019-09-14 00:10] VITALS: BP 132/78
--- NOTE | 2019-09-14 00:10 | NUR ---
temp 100.5
--- NOTE | 2019-09-14 00:15 | NUR ---
tylenol supp 650mg given.
[2019-09-14] MEDS ORDERED: ACETAMINOPHEN 650 MG SUPP PR ONE (00:18)
--- NOTE | 2019-09-14 00:20 | NUR ---
bp 131/81 hr 79 rr 20 02 sats 99%
[2019-09-14 00:23] LABS: BASOPHILS % 0.2 % (0.0-1.0); EOSINOPHILS # (AUTO) 0.1 (0.0-0.4); EOSINOPHILS % 0.3 % (0.0-6.0); HEMATOCRIT 32.9 % (38.2-49.6); HEMOGLOBIN 11.1 g/dL (14.0-18.0); LYMPHOCYTES # (AUTO) 1.4 (1.0-3.2); LYMPHOCYTES % 6.6 % (18.0-39.1); MEAN CORPUSCULAR HGB CONC 33.7 g/dL (31-35); MEAN CORPUSCULAR VOLUME 83.1 fL (81-99); MONOCYTES # (AUTO) 0.8 (0.2-0.8); MONOCYTES % 3.9 % (4.4-11.3); NEUTROPHILS # (AUTO) 17.8 (2.1-6.9); NEUTROPHILS % 86.7 % (38.7-80.0); PLATELET COUNT 175 x10e3/uL (140-360); RED BLOOD COUNT 3.96 x10e6/uL (4.3-5.7); RED CELL DISTRIBUTION WIDTH 14.7 % (11.7-14.4)
[2019-09-14 00:32] LABS: INR 1.09; PROTHROMBIN TIME 14.7 seconds (11.9-14.5)
[2019-09-14 00:33] LABS: PARTIAL THROMBOPLASTIN TIME 28.8 seconds (23.8-35.5)
--- NOTE | 2019-09-14 00:35 | NUR ---
patient to radiology dept for ct head.
[2019-09-14 00:41] LABS: ANION GAP 8.6 mmol/L (8-16); BLOOD UREA NITROGEN 24 mg/dL (7-26); BUN/CREATININE RATIO 32 (6-25); CALCIUM 7.7 mg/dL (8.4-10.2); CARBON DIOXIDE 19 mmol/L (22-29); CHLORIDE 119 mmol/L (98-107); CREATINE KINASE 17 IU/L (30-200); CREATININE, SERUM 0.75 mg/dL (0.72-1.25); EST GLOMERULAR FILTRATION RATE > 60 ML/MIN (60-); GLUCOSE 114 mg/dL (74-118); POTASSIUM 3.6 mmol/L (3.5-5.1); SODIUM 143 mmol/L (136-145)
--- NOTE | 2019-09-14 00:45 | NUR ---
patient returned from ct. bp 130/79 hr 79 rr 18 02 sats 99%. patient placed on /nc for comfort.
--- NOTE | 2019-09-14 01:08 | NUR ---
patient alert and talking to daughter at the bedside. Daughter says, " My dad says he is feeling better. "
--- NOTE | 2019-09-14 01:16 | Diagnostic Imaging Report ---
EXAMINATION: Head CT without contrast. HISTORY:Altered mental status. COMPARISON:None. TECHNIQUE: Multidetector axial images were obtained from the foramen magnum to the vertex without contrast. The images were reconstructed using brain and bone algorithms. Thin section brain images were reformatted into coronal and sagittal planes. Dose modulation, iterative reconstruction, and/or weight based adjustment of the mA/kV was utilized to reduce the radiation dose to as low as reasonably achievable. Intravenous contrast: None IMAGE QUALITY: Suboptimal evaluation particularly at the level of skull base and posterior fossa structures due to streak artifacts. FINDINGS: Skull/scalp: No lytic or blastic. lesions. No surgical changes. Parenchyma/extra-axial space: Multifocal acute subarachnoid hemorrhage, particularly in the right precentral sulcus, left superior frontal sulcus and questionable trace subarachnoid hemorrhage in right superior frontal sulcus, the largest in right precentral sulcus approximately measures 7.6 mm in maximum dimension. No midline shift or brain herniation. Nonspecific bilateral frontoparietal confluent periventricular and patchy subcortical/deep white matter hypodensity are likely related to small vessel ischemic changes. No acute hemorrhage, mass or acute major vascular territorial infarct. Arteries: No density suggestive of thrombosis. Dural sinuses: No abnormal density suggestive of thrombosis. Ventricles: Moderate compensated dilatation due to volume loss. No acute hydrocephalus. Brain volume: Generalized age-related cerebral volume loss. Craniocervical junction: No mass, Chiari malformation, or basilar invagination. Sella: No mass. Paranasal/mastoid sinuses: Imaged portions unremarkable. IMPRESSION: 1. Multifocal acute subarachnoid hemorrhage particularly in right precentral sulcus and bilateral superior frontal sulcus. No midline shift or brain herniation. Differential consideration includes anticoagulants use, amyloidosis or vasculitis with no known history of trauma. 2. Moderate supratentorial white matter microvascular ischemic changes. 3. Generalized age-related cerebral volume loss. Findings were informed to ER physician Dr. Ocasio by phone at 1:05 AM on 09/14/2019. Signed by: Dr. Do Colon M.D. on 09/14/2019 1:13 AM
--- NOTE | 2019-09-14 01:20 | NUR ---
ct brain shows subarachnoid hemorrhage per eJsi Stoddard RN per radiology. Dr. Hoff notified at this time. order received to transfer patient to icu and arrange transfer down town. mails supervisor, Tatiana Santillan RN notified at this time.
--- NOTE | 2019-09-14 01:25 | NUR ---
ct results explained to daughter. she was also informed that her dad will be transfered downtown. daughter verbalizes understanding of this.
--- NOTE | 2019-09-14 01:45 | NUR ---
Dr. Hoff spoke to daughter via telephone with luxembourgish speaking track repair supervisor and explained her dads situation to her at this time. daughter verbalizes understanding of this.
[2019-09-14] MEDS ORDERED: LABETALOL HCL 5 MG/ML 20ML VIAL IV PRN (02:00)
[2019-09-14] MEDS ORDERED: PHYTONADIONE 10 MG/ML AMP SQ ONE (02:30)
--- NOTE | 2019-09-14 02:45 | NUR ---
report called to Bharath MEJIAS at [facility] .
[2019-09-14 03:00] VITALS: BP 146/86
--- NOTE | 2019-09-14 03:10 | NUR ---
patient transfered to [facility] via ambulance at this time. vss. patient awake and responsive at time of transfer.
--- NOTE | 2019-09-14 03:40 | Progress Note ---
DATE: SUBJECTIVE: This gentleman, this evening, had a rapid response, in which he was found to be unresponsive, in which the ER physician came to evaluate the patient. Once again, this information is being obtained from the nursing staff, who is currently taking care of him. A stat CT brain was performed that showed evidence of a subarachnoid hemorrhage seems to be more spontaneous in nature. So, the nursing staff called me, the powerhouse mechanic apprentice, Tatiana Valladares, who was taking care of the patient and notified me of the findings. I requested a stat transfer to the [facility] for further evaluation. Currently, the patient is alert, he is awake, he is oriented and is able to talk to his daughter, Cathie, who is at bedside. Current vital signs; he is stable, he is afebrile, normotensive and he is awake and alert. Transfer center called me. I was able to speak to the neurointensivist, Dr. Lugo, who is the physician at [facility] in [facility] and we discussed the case with him including the imaging studies, vitals, and labs and he has agreed to take the patient as a transfer stat to the [facility]. We discussed the case in terms of either ground transfer to the [facility] and he agreed based on our conversation that he wanted the patient to go by ground as soon as possible. Currently, though, the patient is alert, awake, and oriented according to the nursing staff. I was able to speak to the daughter by phone using a automotive detailer and daughter does speak some [place], but we wanted to make sure she understands, her name is Cathie, and I discussed with her the current findings. Apparently, the patient did not have any falls at home. In fact, he only came in because of a urinary tract infection. He was sent in by his PCP. I discussed with her this seems to be more of a spontaneous subarachnoid hemorrhage and the patient did not have any falls in the hospital. He is currently doing very well this is what I explained to her, but it is a very serious situation when he had a subarachnoid hemorrhage. Despite him being awake and alert, he can get worse this is what I explained to her and the only option I have is to transfer to the [facility]. She agreed and understood the plan of care that he will be transferred as soon as possible. She also states that she discussed this with the rest of her family. Once again, this is a spontaneous subarachnoid hemorrhage that occurred and he is still currently being treated for underlying sepsis for urinary tract infection. Otherwise, I explained it thoroughly to the daughter, Cathie, and she verbalized understanding. I also explained it to the powerhouse mechanic apprentice Tatiana Valladares, in which they verbalized understanding and agree of plan of care. The patient will soon be transferred as stat to [facility] under Neuro ICU under the neurointensivist, Dr. Lugo, in which I spoke to over the transfer center. MD SHEYLA Macario/BEVERLEY /[id number]
--- NOTE | 2019-09-15 02:12 | Discharge Summary ---
FINAL DISCHARGE DIAGNOSES: 1. Sepsis with leukocytosis secondary to urinary tract infection. 2. Acute spontaneous subarachnoid bleed. 3. Urinary tract infection. 4. Coronavirus disease-19 pneumonia ruled out. 5. Lactic acidosis resolved. 6. History of Parkinson disease. 7. Small pleural effusion, concerns for loculation. CONSULTANTS: Pulmonary, ID, Urology. PHYSICAL EXAMINATION: VITAL SIGNS: Temperature is 97.8, pulse 81, respiratory rate is 20, blood pressure 146/86, pulse ox 99% on room air. LABORATORY FINDINGS: White count on discharge was 20.5, when he came in was 35 and it peaked up to 50. Hemoglobin 11, hematocrit is 33, platelets of 175. Coagulation; PT 14, INR 1.09, PTT 28. Chemistry; sodium 143, potassium 3.6, chloride 119, bicarb 19, anion gap of 8.6, BUN is 24, creatinine 0.75, glucose 114, calcium is 7.7, total bilirubin was 0.3, AST 36, ALT 25, alkaline phosphatase 106. Troponin downtrend to 0.096. Albumin was 1.9. Procalcitonin level was 72. Urinalysis consistent with UTI. Coronavirus was negative. Microbiology; urine cultures were positive for Escherichia coli. Blood cultures, no growth to date greater than 48 hours. IMAGING STUDIES: Chest x-ray shows trace bilateral pleural effusion with bibasilar opacity with atelectasis or possible infection. CT abdomen and pelvis with IV contrast shows marked urinary bladder wall thickening with mucosal enhancement, consistent with cystitis. Distention of the rectum by stool with suggestion of mild perirectal inflammation. There is concern for proctitis. Small bilateral pleural effusion. The left pleural effusion is minimally loculated. CT of the chest with IV contrast, similar findings as CT abdomen and pelvis. In fact, CT chest, abdomen, and pelvis, similar impression. There was a stat CT brain on 09/14/2019, that showed multifocal acute subarachnoid hemorrhage, particularly in the right precentral sulcus and bilateral superior frontal sulcus. No midline shift or brain herniation. Moderate supratentorial white matter microvascular ischemic changes. Generalized age-related cerebral volume loss. HOSPITAL COURSE: This is an 84-year-old male, who was sent in by his primary care physician due to concerns for elevated white count and underlying urinary tract infection. The patient was admitted for underlying sepsis for UTI and has significant amount of pus coming out from his [place] catheter prompting Urology consultation. The patient had sandoval CT chest, abdomen and pelvis with results above shows evidence of cystitis and some concerns for a small left pleural effusion loculation. Pulmonary Critical Care was involved including ID. The patient maintained on IV antibiotic therapy. Blood cultures were no growth and urine cultures were positive for Escherichia coli. While here, the patient was improving. In fact, he worked with physical therapy and occupational therapy. The patient's daughter was at bedside throughout this hospital course, in which I updated her daily on his overall diagnosis. In the seat cover cutter on 09/14/2019, the patient had a rapid response as the nurse was concerned that the patient was obtunded. A stat CT brain was performed and the patient was found to have a multifocal acute subarachnoid hemorrhage, particularly in the right precentral sulcus and bilateral superior frontal sulcus. There was no midline shift or brain herniation. There was no acute CVA noted according to the CT report. I spoke with the daughter by phone with the nurses present using a medical translator in which I discussed with her the overall findings. I spoke with her very clearly. She reports to me that he did not have any recent fall at home, nor did he have a fall here in the hospital. In fact, the patient was doing well with physical therapy. I ordered a stat transfer to [facility] in [facility] for further evaluation. I spoke with the neuro ICU implementation engineer, Dr. Lugo, and discussed the case with him including the imaging studies. In fact, there was a conference call with me, Dr. Lugo and Cathi was the house admin who initiated this transfer. We reviewed the labs, vitals, and imaging studies. We have agreed that the patient does need to be transferred to Neuro ICU in the [facility]. Prior to being discharged, the patient was alert, awake, and oriented. He was able to talk to his daughter. His vital signs were stable. After the agreement of being transferred by Dr. Lugo, I spoke with the nursing staff on the floor, Lukas, and discussed this case with them as well with Cathi who is the house admin. The patient was given vitamin K 10 mg x1 including a unit of FFP stat. I spoke with Dr. Lugo and he agreed. Since the patient is stable at this moment, he is awake, alert, and talking with normal vitals, he agreed to transfer the patient via ground. I reiterated this findings and overall plan of care with the daughter, Purnima, by phone and also using a medical translator in which she verbalized understanding. She will reiterate all this information back to her family. At this time, the patient was transferred to [facility] to Neuro ICU. I answered all the daughter's questions by phone and she verbalized understanding. I also discussed this case with the nursing staff and house admin and they verbalized understanding. MEDICATIONS: See med reconciliation form. DISPOSITION: Transferred to [facility] for higher level of care to Neuro ICU. CONDITION: Guarded. In the event of any worsening symptoms, the patient was asked to come back to the ED for further evaluation. Discharge summary took greater than 35 minutes. MD SHEYLA Macario/BEVERLEY /[id number]
== END 2019-09-14 03:10 | disposition short-term general hospital (02) | DRG 871 ==
LOC: ER 23:50 → ERHOLD 09-12 04:56 → IMCU 09-12 07:52
PROVIDERS: ADMIT Internal Medicine; ATTEND Internal Medicine
PROC: 02HV33Z Insertion of Infusion Device into Superior Vena Cava, Percutaneous Approach (ICD-10-PCS; principal; 2019-09-13)
DX: A41.9 Sepsis, unspecified organism (principal); R65.21 Severe sepsis with septic shock; I60.9 Nontraumatic subarachnoid hemorrhage, unspecified; J90 Pleural effusion, not elsewhere classified; N17.9 Acute kidney failure, unspecified; E87.2 Acidosis; Z11.59 Encounter for screening for other viral diseases; G20 Parkinson's disease; N30.90 Cystitis, unspecified without hematuria; N40.0 Benign prostatic hyperplasia without lower urinary tract symptoms; I12.9 Hypertensive chronic kidney disease with stage 1 through stage 4 chronic kidney disease, or unspecified chronic kidney disease; N18.9 Chronic kidney disease, unspecified
CPT/HCPCS: 36415; 36569; 51700; 70450; 71045; 71260; 74177; 80048; 80053; 81001; 82550; 82553; 83605; 84145; 84484; 85025; 85610; 85730; 87040; 87086; 87186; 93005; 99284; J0696; J1650; J3370; J3430; J7030; Q9967; U0002

== ENCOUNTER → 2020-11-14 | Outpatient (CLI) | payer MEDICARE, OTHER ==
[~2020-11-14] MED LIST: CARBIDOPA-LEVO1 EAC1 PO; FINASTERIDE5 MG PO; FUROSEMIDE20 MG PO; MYSOLINE250 MG PO; SMZ/TMP PO; TOPIRAMATE50 MG PO
[2020-11-14 14:06] LABS: HEMOGLOBIN 15.3 g/dL (14.0-18.0)
[2020-11-14 14:31] LABS: CREATININE, SERUM 0.78 mg/dL (0.72-1.25)
== END ==
LOC: DX 13:14
PROVIDERS: ATTEND Internal Medicine Infectious Disease
DX: N39.0 Urinary tract infection, site not specified (principal)
CPT/HCPCS: 36415; 36569; 71045; 82565; 84520; 85014; 85049